=== PATIENT | male | born 1980 | race Caucasian/White ===

== ENCOUNTER 2025-01-09 17:51 | Inpatient (IN) | payer MEDICARE, OTHER ==
--- NOTE | 2025-01-09 19:05 | ED ---
Abdominal Pain HPI - General Chief Complaint: Abdominal Pain Stated Complaint: abd pain Time Seen by Provider: 01/09/25 19:04 Source: patient, RN notes reviewed Mode of arrival: ambulatory Limitations: no limitations - History of Present Illness Initial Comments: 44-year-old male with a past medical history significant of alcoholism and pancreatitis presenting to the ER for evaluation of abdominal pain. Patient states he relapsed on alcohol on his birthday [birth year] in celebration. He states today he started to experience a severe epigastric abdominal discomfort with radiation to his back. He states it feels similar. He has pancreatitis flares. He also admits to nausea but denies vomiting. Denies any constipation, diarrhea or urinary complaints. Patient states he typically drinks a pint of alcohol a day and is seeking help with rehab. He denies a history of seizures or DTs. He states he took " a shot 5 hours ago". He denies any fevers, chills, chest pain, shortness of breath or other complaints. Admits to marijuana use. Denies cholecystectomy. - Related Data Allergies Allergy/AdvReac Type Severity Reaction Status Date / Time No Known Allergies Allergy Verified 01/09/25 18:22 Review of Systems ROS Statement: Those systems with pertinent positive or pertinent negative responses have been documented in the HPI. ROS Other: All systems not noted in ROS Statement are negative. Past Medical History Additional Past Medical History / Comment(s): pancreatitis. Past Surgical History: No Surgical Hx Reported Smoking Status: Current every day smoker Past Alcohol Use History: Abuse Past Drug Use History: Marijuana General Exam Limitations: no limitations General appearance: alert, in no apparent distress, appears intoxicated Respiratory exam: Present: normal lung sounds bilaterally. Absent: respiratory distress, wheezes, rales, rhonchi, stridor Cardiovascular Exam: Present: regular rate, normal rhythm, normal heart sounds. Absent: systolic murmur, diastolic murmur, rubs, gallop, clicks GI/Abdominal exam: Present: soft, tenderness (Epigastric), normal bowel sounds Extremities exam: Present: normal inspection, full ROM, normal capillary refill. Absent: tenderness, pedal edema, joint swelling, calf tenderness Neurological exam: Present: alert, oriented X3, CN II-XII intact Skin exam: Present: warm, dry, intact, normal color. Absent: rash Course Vital Signs 01/09/25 18:19 Temperature 97.8 F Pulse Rate 74 Respiratory 17 Rate Blood Pressure 167/94 O2 Sat by Pulse 98 Oximetry - Reevaluation(s) Reevaluation #1: 01/09/25 22:20 case discussed with LUCIEN Edward, accepts admission. Medical Decision Making - Medical Decision Making Was pt. sent in by a medical professional or institution (, EVER, PAYROLL OFFICER, urgent care, hospital, or skilled nursing...) When possible be specific @ -No Did you speak to anyone other than the patient for history (EMS, parent, family, police, friend...)? What history was obtained from this source @ -No Did you review nursing and triage notes (agree or disagree)? Why? @ -I reviewed and agree with nursing and triage notes Were old charts reviewed (outside hosp., previous admission, EMS record, old EKG, old radiological studies, urgent care reports/EKG's, skilled nursing records)? Report findings @ -No old charts were reviewed Differential Diagnosis (chest pain, altered mental status, abdominal pain women, abdominal pain men, vaginal bleeding, weakness, fever, dyspnea, syncope, headache, dizziness, GI bleed, back pain, seizure, CVA, palpatations, mental health, musculoskeletal)? @ -Differential Abdominal Pain Men:Appendicitis, cholecystitis, diverticulosis, ischemic bowel, pancreatitis, hepatitis, UTI, gastroenteritis, AAA, incarcerated hernia, bowel obstruction, constipation, inflammatory bowel, hepatitis, peptic ulcer disease, splenic infarction, perforated viscus, testicular torsion, this is not meant to be an all-inclusive list EKG interpreted by me (3pts min.). @ -As above X-rays interpreted by me (1pt min.). @ -None done CT interpreted by me (1pt min.). @ -None done U/S interpreted by me (1pt. min.). @ -Gallbladder ultrasound interpreted by me no gallbladder wall thickening gallbladder wall 0.11 cm and no CBD dilation measuring 0.31 cm. Official radiology report pending. What testing was considered but not performed or refused? (CT, X-rays, U/S, labs)? Why? @ -None What meds were considered but not given or refused? Why? @ -None Did you discuss the management of the patient with other professionals (professionals i.e. , PA, PAYROLL OFFICER, lab, RT, psych nurse, case management social worker, sweatband shaper, teacher, highway patrol officer, foster care case manager)? Give summary @ -Yes, case discussed with Cheyanne MCGRAW accepts admission. Was smoking cessation discussed for >3mins.? @ -No Was critical care preformed (if so, how long)? @ -No Were there social determinants of health that impacted care today? How? ( Homelessness, low income, unemployed, alcoholism, drug addiction, transportation, low edu. Level, literacy, decrease access to med. care, alf, rehab)? @ -ETOH abuse Was there de-escalation of care discussed even if they declined (Discuss DNR or withdrawal of care, Hospice)? DNR status @ -No What co-morbidities impacted this encounter? (DM, HTN, Smoking, COPD, CAD, Cancer, CVA, ARF, Chemo, Hep., AIDS, mental health diagnosis, sleep apnea, morbid obesity)? @ -EtOH abuse, history of pancreatitis Was patient admitted / discharged? Hospital course, mention meds given and route, prescriptions, significant lab abnormalities, going to OR and other pertinent info. @ -Admitted. 44-year-old male presented the ER for evaluation of abdominal pain. Upon arrival vitals within acceptable limits. Patient appears intoxicated and in pain but no signs of acute respiratory distress. Abdominal exam remarkable for focal epigastric abdominal discomfort with normal bowel sounds. No rebound or guarding. Laboratory studies show an elevated lipase at 1314, amylase 178. Hepatobiliary laboratory studies within normal limits. Serum alcohol 18. Patient started on CIWA protocol and Ativan protocol. Seizure precautions in place. CIWA 3. Gallbladder ultrasound official radiology report pending at time of admission. Interpreted by me shows no gallbladder wall thickening or common bile duct dilation. Patient received IV fluid bolus, Zofran, Reglan, Toradol and Dilaudid for pain control in the ER. Upon reevaluation, patient requesting more pain and antiemetic medications, orders placed. Admission considered for further evaluation and treatment of pancreatitis. Admission accepted by Cheyanne MCGRAW. Patient agreeable for admission and admitted in stable condition for further evaluation and treatment. Case discussed with ED attending, Dr. Escobedo. Undiagnosed new problem with uncertain prognosis? @ -No Drug Therapy requiring intensive monitoring for toxicity (Heparin, Nitro, Insulin, Cardizem)? @ -No Were any procedures done? @ -No Diagnosis/symptom? @ -Pancreatitis Acute, or Chronic, or Acute on Chronic? @ -Acute Uncomplicated (without systemic symptoms) or Complicated (systemic symptoms)? @ -Complicated Side effects of treatment? @ -No Exacerbation, Progression, or Severe Exacerbation? @ -No Poses a threat to life or bodily function? How? (Chest pain, [place], [place], pneumonia, PE, COPD, DKA, ARF, appy, cholecystitis, CVA, Diverticulitis, Homicidal, Pagan icidal, threat to staff... and all critical care pts) @ -Possibly - Lab Data Result diagrams: 01/09/25 19:40 01/09/25 19:40 Lab Results 01/09/25 01/09/25 01/09/25 Range/Units 19:40 19:40 19:40 WBC 7.29 (4.50-10.00) 10*3/uL RBC 4.50 (4.40-5.60) 10*6/uL Hgb 14.8 (13.0-17.0) g/dL Hct 41.2 (39.6-50.0) % MCV 91.6 (80.0-97.0) fL MCH 32.9 H (27.0-32.0) pg MCHC 35.9 (32.0-37.0) g/dL Plt Count 195 (140-440) 10*3/uL MPV 9.6 (9.5-12.2) fL Immature Gran % (Auto) 0.4 % Neutrophils % 77.8 % Lymphocytes % 15.6 % Monocytes % 5.3 % Eosinophils % 0.4 % Basophils % 0.5 % Immature Gran # 0.03 (0.00-0.04) 10*3/uL Neutrophils # 5.66 (1.80-7.70) 10*3/uL Lymphocytes # 1.14 (0.90-5.00) 10*3/uL Monocytes # 0.39 (0.20-1.00) 10*3/uL Eosinophils # 0.03 L (0.04-0.35) 10*3/uL Basophils # 0.04 (0.00-0.10) 10*3/uL Sodium 138 (137-145) mmol/L Potassium 3.8 (3.5-5.1) mmol/L Chloride 103 (98-107) mmol/L Carbon Dioxide 24 (22-30) mmol/L Anion Gap 11 mmol/L BUN 9 (9-20) mg/dL Creatinine 0.61 L (0.66-1.25) mg/dL Est GFR (CKD-EPI)AfAm >90 (>60 ml/min/1.73 sqM) Est GFR (CKD-EPI)NonAf >90 (>60 ml/min/1.73 sqM) Glucose 112 H (74-99) mg/dL Plasma Lactic Acid Valdemar 1.8 (0.7-2.0) mmol/L Calcium 9.1 (8.4-10.2) mg/dL Total Bilirubin 0.7 (0.2-1.3) mg/dL AST 33 (17-59) U/L ALT 34 (4-49) U/L Alkaline Phosphatase 112 (38-126) U/L Total Protein 6.9 (6.3-8.2) g/dL Albumin 4.3 (3.5-5.0) g/dL Amylase 174 H (30-110) U/L Lipase 1314 H (23-300) U/L Serum Alcohol 18 mg/dL - EKG Data -: EKG Interpreted by Me EKG Comments: EKG taken at 19: 42 showing a sinus rhythm. T wave inversions lead III. Vent ricular rate 61, NH interval 181, QRS duration 105, QT/QTc 407/409. - Radiology Data Radiology results: image reviewed Disposition Clinical Impression: Pancreatitis, Alcohol use Disposition: ADMITTED IP TO THIS [facility] Condition: Stable Referrals: Daron Leblanc MD [Primary Care Provider] - 1-2 days Time of Disposition: 22:13
[2025-01-09] MEDS: SODIUM CHLORIDE 0.9% 1,000 ML IV ONE (19:45)
[2025-01-09] MEDS: ONDANSETRON 4 MG/2 ML VIAL IVP STA (19:46)
[2025-01-09] MEDS: ACETAMINOPHEN TAB 325 MG TAB PO STA (19:47)
[2025-01-09] MEDS: KETOROLAC 15 MG/ML 1 ML VIAL IVP STA (19:47)
[2025-01-09] MEDS: THIAMINE 100 MG TAB PO STA (19:47)
[2025-01-09 20:03] LABS: ALT 34 U/L (4-49); AST 33 U/L (17-59); African American GFR (CKD) >90 (>60 ml/min/1.73 sqM); Albumin 4.3 g/dL (3.5-5.0); Alcohol 18 mg/dL; Alkaline Phosphatase 112 U/L (38-126); Amylase 174 U/L (30-110); Anion Gap 11 mmol/L; Blood Urea Nitrogen 9 mg/dL (9-20); Calcium 9.1 mg/dL (8.4-10.2); Carbon Dioxide 24 mmol/L (22-30); Chloride 103 mmol/L (98-107); Glucose 112 mg/dL (74-99); Lipase 1314 U/L (23-300); Non-African American GFR(CKD) >90 (>60 ml/min/1.73 sqM); Potassium 3.8 mmol/L (3.5-5.1); Sodium 138 mmol/L (137-145); Total Bilirubin 0.7 mg/dL (0.2-1.3); Total Protein 6.9 g/dL (6.3-8.2)
[2025-01-09 20:04] LABS: Basophils # (A) 0.04 10*3/uL (0.00-0.10); Basophils % (A) 0.5 %; Eosinophils # (A) 0.03 10*3/uL (0.04-0.35); Eosinophils % (A) 0.4 %; HCT 41.2 % (39.6-50.0); HGB 14.8 g/dL (13.0-17.0); Lymphocytes # (A) 1.14 10*3/uL (0.90-5.00); Lymphocytes % (A) 15.6 %; MCH 32.9 pg (27.0-32.0); MCHC 35.9 g/dL (32.0-37.0); MCV 91.6 fL (80.0-97.0); Mean Platelet Volume 9.6 fL (9.5-12.2); Monocytes # (A) 0.39 10*3/uL (0.20-1.00); Monocytes % (A) 5.3 %; Neutrophils # (A) 5.66 10*3/uL (1.80-7.70); Neutrophils % (A) 77.8 %; Platelet Count 195 10*3/uL (140-440); RDW 12.4 % (11.5-14.5); WBC 7.29 10*3/uL (4.50-10.00)
[2025-01-09] MEDS: SODIUM CHLORIDE 0.9% 500 ML 500 ML IV ONE (22:12)
[2025-01-09] MEDS ORDERED: LORazepam 2 MG/ML INJ IV PRN ×3 (22:12)
[2025-01-09] MEDS: diphenhydrAMINE 50 MG/ML 1 ML VIAL IVP STA (22:14)
[2025-01-09] MEDS: METOCLOPRAMIDE 5 MG/ML 2 ML VIAL IVP STA (22:15)
[2025-01-09] MEDS: HYDROmorphone 0.5 MG/0.5 ML SYRINGE IVP STA (22:18)
[2025-01-09] MEDS ORDERED: NALOXONE 0.4 MG/ML 1 ML VIAL IV PRN (22:19)
[2025-01-09] MEDS ORDERED: ACETAMINOPHEN TAB 325 MG TAB PO PRN (22:19)
--- NOTE | 2025-01-09 22:26 | US ---
EXAMINATION TYPE: US gallbladder DATE OF EXAM: 01/09/2025 COMPARISON: NONE CLINICAL INDICATION: Male, 44 years old with history of RUQ abd pain elevated lipase; epigastric pain and RUQ pain. Hx of pancreatitis multiple times per pt. Elevated lipase and amylase TECHNIQUE: Grayscale and color Doppler imaging of the right upper quadrant was performed. FINDINGS: EXAM MEASUREMENTS: Liver Length: 16.7 cm. Normal less than 15.5 cm . Gallbladder Wall: 0.11 cm CBD: 0.31 cm Right Kidney: 9.8 x 8.3 x 4.3 cm HAND STAPLER NOTES: Pancreas: heterogeneous appearance. Slightly limited due to overlying bowel gas Liver: heterogeneous and slightly enlarged Gallbladder: wnl Evidence for sonographic Alvarez's sign: No CBD: wnl Right Kidney: wnl IMPRESSION: 1. Mild fatty infiltration of liver with minimal hepatomegaly [facility] Wagner Spaulding, Workstation: [facility], 01/09/2025 10:24 PM
[2025-01-09] MEDS: SODIUM CHLORIDE 0.9% 1,000 ML IV SCH (23:13)
[2025-01-10] MEDS: HYDROmorphone 0.5 MG/0.5 ML SYRINGE IVP PRN (01:19)
[2025-01-10] MEDS: ONDANSETRON 4 MG/2 ML VIAL IVP PRN (04:18)
[2025-01-10] MEDS: KETOROLAC 15 MG/ML 1 ML VIAL IVP PRN (07:00)
[2025-01-10] MEDS ORDERED: LORazepam 1 MG/0.5 ML VIAL IV PRN ×3 (09:05→09:06)
[2025-01-10 11:09] VITALS: BMI 22.0
[2025-01-10] MEDS: PANTOPRAZOLE 40 MG/10 ML VIAL IVP SCH (13:53)
--- NOTE | 2025-01-10 13:56 | P.HPIM ---
History of Present Illness 44-year-old male came in status epigastric abdominal pain severe sharp radiating to the back. Patient had multiple episodes of pancreatitis in the past continues to drink alcohol on regular basis. Patient drinks about a pint of alcohol every day had history of withdrawals in the past. Patient had withdrawal seizures in the past as well. Patient is presently not tolerating clear liquid diet patient's amylase is 174 lipase is 1314. Admits to marijuana use. Patient had an ultrasound which did not show any cholelithiasis. REVIEW OF SYSTEMS: All other systems are negative except those mentioned in the HPI PHYSICAL EXAMINATION: GENERAL: The patient is alert and oriented x3, not in any acute distress. Well developed, well nourished. HEENT: Pupils are round and equally reacting to light. EOMI. No scleral icterus. No conjunctival pallor. Normocephalic, atraumatic. No pharyngeal erythema. No thyromegaly. CARDIOVASCULAR: S1 and S2 present. No murmurs, rubs, or gallops. PULMONARY: Chest is clear to auscultation, no wheezing or crackles. ABDOMEN: Soft, mild tenderness in the epigastric area nondistended, normoactive bowel sounds. No palpable organomegaly. MUSCULOSKELETAL: No joint swelling or deformity. EXTREMITIES: No cyanosis, clubbing, or pedal edema. NEUROLOGICAL: Gross neurological examination did not reveal any focal deficits. SKIN: No rashes. Assessment and plan -Alcoholic pancreatitis patient will be made n.p.o. continue with IV fluids will increase IV fluids to 100 cc/h. Continue with Toradol, Protonix and Dilaudid as needed. - Alcohol abuse: Counseling was provided, thiamine will be added. - Alcohol withdrawal patient is on Ativan CIWA protocol presently not having any withdrawals. His last drink was last yesterday. - Marijuana and nicotine use: Counseling was provided DVT prophylaxis: Lovenox Past Medical History Additional Past Medical History / Comment(s): pancreatitis History of Any Multi-Drug Resistant Organisms: None Reported Past Surgical History: Hernia Repair Smoking Status: Current every day smoker Past Alcohol Use History: Abuse Past Drug Use History: Marijuana - Past Family History Mother History Unknown: Yes Father History Unknown: Yes Medications and Allergies Home Medications Medication Instructions Recorded Confirmed Type FLUoxetine HCL 20 mg PO DAILY PRN 01/10/25 01/10/25 History Allergies Allergy/AdvReac Type Severity Reaction Status Date / Time No Known Allergies Allergy Verified 01/10/25 09:46 Physical Exam Vitals: Vital Signs Temp Pulse Pulse Pulse Resp BP BP 01/10/25 07:00 98.2 F 63 16 150/82 01/10/25 02:00 98.1 F 62 17 01/09/25 23:13 98.3 F 59 L 17 157/95 01/09/25 18:19 97.8 F 74 17 167/94 BP Pulse Ox 01/10/25 07:00 98 01/10/25 02:00 145/82 96 01/09/25 23:13 97 01/09/25 18:19 98 Intake and Output 01/09/25 01/10/25 01/10/25 22:59 06:59 14:59 Other: Voiding Method Toilet Urinal # Voids 0 Weight 65.771 kg 65.771 kg 65.771 kg Results CBC & Chem 7: 01/09/25 19:40 01/09/25 19:40 Labs: Abnormal Lab Results - Last 24 Hours (Table) 01/09/25 01/09/25 Range/Units 19:40 19:40 MCH 32.9 H (27.0-32.0) pg Eosinophils # 0.03 L (0.04-0.35) 10*3/uL Creatinine 0.61 L (0.66-1.25) mg/dL Glucose 112 H (74-99) mg/dL Amylase 174 H (30-110) U/L Lipase 1314 H (23-300) U/L Thrombosis Risk Factor Assmnt - Choose All That Apply Each Factor Represents 1 point: Age 41-60 years Thrombosis Risk Factor Assessment Total Risk Factor Score: 1 Thrombosis Risk Factor Assessment Level: Low Risk
[2025-01-11 05:54] LABS: African American GFR (CKD) >90 (>60 ml/min/1.73 sqM); Anion Gap 12 mmol/L; Blood Urea Nitrogen 7 mg/dL (9-20); Calcium 8.8 mg/dL (8.4-10.2); Carbon Dioxide 20 mmol/L (22-30); Chloride 103 mmol/L (98-107); Glucose 70 mg/dL (74-99); Lipase 329 U/L (23-300); Magnesium 1.8 mg/dL (1.6-2.3); Non-African American GFR(CKD) >90 (>60 ml/min/1.73 sqM); Potassium 3.4 mmol/L (3.5-5.1); Sodium 135 mmol/L (137-145)
[2025-01-11] MEDS: ENOXAPARIN 40 MG/0.4 ML SYRINGE SQ SCH (08:13)
[2025-01-12 12:12] LABS: Basophils # (A) 0.03 10*3/uL (0.00-0.10); Basophils % (A) 0.7 %; Eosinophils # (A) 0.12 10*3/uL (0.04-0.35); Eosinophils % (A) 2.8 %; HCT 40.9 % (39.6-50.0); HGB 14.1 g/dL (13.0-17.0); Lymphocytes # (A) 1.04 10*3/uL (0.90-5.00); Lymphocytes % (A) 23.9 %; MCH 32.9 pg (27.0-32.0); MCHC 34.5 g/dL (32.0-37.0); MCV 95.3 fL (80.0-97.0); Mean Platelet Volume 9.5 fL (9.5-12.2); Monocytes # (A) 0.41 10*3/uL (0.20-1.00); Monocytes % (A) 9.4 %; Neutrophils # (A) 2.74 10*3/uL (1.80-7.70); Platelet Count 155 10*3/uL (140-440); RBC 4.29 10*6/uL (4.40-5.60); RDW 12.6 % (11.5-14.5); WBC 4.35 10*3/uL (4.50-10.00)
[2025-01-12 12:25] LABS: ALT 24 U/L (4-49); AST 33 U/L (17-59); African American GFR (CKD) >90 (>60 ml/min/1.73 sqM); Albumin 4.1 g/dL (3.5-5.0); Albumin/Globulin Ratio 1.6; Alkaline Phosphatase 92 U/L (38-126); Amylase 103 U/L (30-110); Anion Gap 19 mmol/L; Blood Urea Nitrogen 8 mg/dL (9-20); Calcium 9.2 mg/dL (8.4-10.2); Carbon Dioxide 11 mmol/L (22-30); Chloride 106 mmol/L (98-107); Globulin 2.5 g/dL; Glucose 71 mg/dL (74-99); Non-African American GFR(CKD) >90 (>60 ml/min/1.73 sqM); Sodium 136 mmol/L (137-145); Total Bilirubin 0.7 mg/dL (0.2-1.3); Total Protein 6.6 g/dL (6.3-8.2)
[2025-01-12] MEDS: FLUoxetine HCL 20 MG CAP PO PRN (23:03)
--- NOTE | 2025-01-13 06:48 | PN ---
PROGRESS NOTE CHIEF COMPLAINT: Acute alcohol intoxication, alcoholism and pancreatitis. HISTORY OF PRESENT ILLNESS: This gentleman is doing a little bit better. He is complaining of some pain in the back. PHYSICAL EXAMINATION: VITAL SIGNS: His blood pressure is high 167/94. CHEST: Clear. CARDIAC: Normal. ABDOMEN: Slightly tender over the epigastrium. IMPRESSION: 1. Alcoholic pancreatitis. 2. Back pain. 3. Hypertension. 4. Chronic alcoholism. PLAN: Continue with IV fluids and analgesics and continue to follow labs. MMODL / IJN: [id number] /
--- NOTE | 2025-01-13 07:24 | PN ---
PROGRESS NOTE CHIEF COMPLAINT: Acute alcoholic pancreatitis and alcoholism. HISTORY OF PRESENT ILLNESS: This gentleman doing a little bit better. Pain is improving. He still has the back pain. PHYSICAL EXAMINATION: CHEST: Clear. CARDIAC: Normal. ABDOMEN: He is pulp press tender in the upper abdomen. There are no masses. IMPRESSION: 1. Acute alcoholic pancreatitis. 2. Acute alcohol intoxication. 3. Chronic alcoholism. PLAN: 1. Advance diet. 2. Repeat labs. MMODL / IJN: [id number] /
[2025-01-13 07:48] VITALS: BP 119/79; PULSE 63; RESP 16; TEMP 98
--- NOTE | 2025-01-13 13:03 | DS ---
DISCHARGE SUMMARY CHIEF COMPLAINT: Acute abdominal pain and alcohol intoxication. HISTORY OF PRESENT ILLNESS AND PHYSICAL EXAMINATION: Details of this man's history and physical can be found in the initial workup. LABORATORY STUDIES: While he was in a hospital, he had laboratory studies, details of which can be found in the laboratory section of his chart. COURSE IN THE HOSPITAL: After admission, he was placed on bedrest, started intravenous fluids, and analgesics for his pancreatitis. Pain slowly subsided and lipase was coming down. His diet was advanced. He was doing well and it was felt that he could be discharged on the . He will follow up in the office in several days. FINAL DIAGNOSES: 1. Acute alcoholic pancreatitis. 2. Chronic alcoholism. OPERATIONS: None. CONSULTATION: None. He is improved. MMODL / RONNAN: [id number] /
== END 2025-01-13 12:30 | disposition home or self-care (01) | DRG 282 ==
LOC: EC 17:51 → 6NMEDSUR 22:20 → OBSVTOIN 01-11 22:20
PROVIDERS: ADMIT Family Medicine; ATTEND Family Medicine
DX: K85.20 Alcohol induced acute pancreatitis without necrosis or infection (principal); F10.239 Alcohol dependence with withdrawal, unspecified; Y90.0 Blood alcohol level of less than 20 mg/100 ml; F17.200 Nicotine dependence, unspecified, uncomplicated; I10 Essential (primary) hypertension; Z79.899 Other long term (current) drug therapy
CPT/HCPCS: 36415; 76705; 80048; 80053; 80320; 82150; 83605; 83690; 83735; 85025; 93005; 96361; 96374; 96375; 99285

== ENCOUNTER 2025-03-16 01:09 | Emergency (ER) | payer MEDICARE ==
[2025-03-16] MEDS: SULFAMETHOX-TMP 800-160MG 1 EACH TAB PO STA (01:37)
[2025-03-16] MEDS: LIDOCAINE 1% INJ 10MG/ML (20 ML MDV) SQ ONE (01:37)
[2025-03-16] MEDS: CEPHALEXIN 500 MG CAP PO STA (01:37)
[2025-03-16] MEDS: KETOROLAC 15 MG/ML 1 ML VIAL IM STA (01:38)
--- NOTE | 2025-03-16 02:39 | ED ---
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 States it initially blistered and he did not deroof the blister, however the blistered area began filling with fluid and having worsening surrounding redness and pain over the last few days. Pt denies systemic symptoms, such as fever, nausea or vomiting. Redness is localised to top of affected digit. Denies numbness. UTD on vaccines including Tdap. No hx MRSA or DM. - Related Data Home Medications Medication Instructions Recorded Confirmed FLUoxetine HCL 20 mg PO DAILY PRN 01/10/25 01/10/25 Previous Rx's Medication Instructions Recorded Cephalexin [Keflex] 500 mg PO Q6HR 7 Days #28 cap 03/16/25 Sulfamethox-Tmp 800-160Mg [Bactrim 1 each PO Q12HR 7 Days #14 tab 03/16/25 DS 800-160 mg] Allergies Allergy/AdvReac Type Severity Reaction Status Date / Time No Known Allergies Allergy Verified 03/16/25 01:15 Review of Systems ROS Statement: Those systems with pertinent positive or pertinent negative responses have been documented in the HPI. ROS Other: All systems not noted in ROS Statement are negative. Past Medical History Additional Past Medical History / Comment(s): pancreatitis History of Any Multi-Drug Resistant Organisms: None Reported Past Surgical History: Hernia Repair Past Psychological History: No Psychological Hx Reported Smoking Status: Current every day smoker Past Alcohol Use History: Abuse Past Drug Use History: Marijuana - Past Family History Mother History Unknown: Yes Father History Unknown: Yes General Exam - General Exam Comments Initial Comments: Vital signs reviewed General: Well-appearing, nontoxic, no acute distress. Head: Normocephalic, atraumatic Eyes: PERRLA, EOMI ENT: Airway patent Chest: Nonlabored breathing Skin: No visual rash, ~ 1 cm blister overlying the proximal left 3rd digit with mild surrounding erythema localized to area surrounding the blister, does not extend up the hand. No erythema to the palmar aspect of the affected finger. Pt does have some pain with completely flexing the affected digit however the finger is not held in flexion, no fusiform swelling of the digit, no TTP along flexor tendon, no pain with passive extension. No deformity, <2s cap refill, sensation intact throughout Neuro: Alert and oriented 3 Musculoskeletal: No gross abnormalities, except pain as noted above Limitations: no limitations Course Vital Signs 03/16/25 03/16/25 01:12 02:57 Temperature 97.5 F L 97.8 F Pulse Rate 65 89 Respiratory 16 19 Rate Blood Pressure 134/68 132/89 O2 Sat by Pulse 100 96 Oximetry Procedures - Incision & Drainage Consent Obtained: verbal consent Site: hand Anesthetic Used: lidocaine 1% Amount (mLs): 6 Scalpel Used: #11 Ultrasound used: No Needle Aspiration Performed?: No Irrigation Performed?: Yes I&D Drainage Obtained: Pus, Blood Loculation Noted: probing needed to break Insertion of drain: No Patient Tolerated Procedure: well - Nerve Block Consent Obtained: verbal consent Local Anesthetic Used: Lidocaine 1% Amount of anesthesia used: 6 Side: left Nerve Blocks: digital Procedure Successful: Yes Complications: none Patient Tolerated Procedure: well Medical Decision Making - Medical Decision Making Was pt. sent in by a medical professional or institution (Dr. PA, EDUCATIONAL PARAPROFESSIONAL, urgent care, hospital, or penitentiary...) When possible be specific @ -No Did you speak to anyone other than the patient for history (EMS, parent, family, police, friend...)? What history was obtained from this source @ -No Did you review nursing and triage notes (agree or disagree)? Why? @ -I reviewed nursing and triage notes Were old charts reviewed (outside hosp., previous admission, EMS record, old EKG, old radiological studies, urgent care reports/EKG's, penitentiary records)? Report findings @ -Medical records reviewed-Reviewed ED note from 01/09/2025 when patient had presented for abdominal pain, patient was admitted after being found to have an elevated lipase. Differential Diagnosis (chest pain, altered mental status, abdominal pain women, abdominal pain men, vaginal bleeding, weakness, fever, dyspnea, syncope, headache, dizziness, GI bleed, back pain, seizure, CVA, palpatations, mental health, musculoskeletal)? @Differential diagnosis remains broad however top considerations include cellulitis, abscess, second-degree partial-thickness burn, flexor tenosynovitis, arthropod bite, this is not all-inclusive list EKG interpreted by me (3pts min.). @ -As above X-rays interpreted by me (1pt min.). @ -None done CT interpreted by me (1pt min.). @ -None done U/S interpreted by me (1pt. min.). @ -None done What testing was considered but not performed or refused? (CT, X-rays, U/S, labs)? Why? @ -None What meds were considered but not given or refused? Why? @ -None Did you discuss the management of the patient with other professionals (professionals i.e. , PA, EDUCATIONAL PARAPROFESSIONAL, lab, RT, psych nurse, director social service, accounts receivable coordinator, teacher, fire prevention officer, immigration case manager)? Give summary @ -No Was smoking cessation discussed for >3mins.? @ -No Was critical care preformed (if so, how long)? @ -No Were there social determinants of health that impacted care today? How? (Homelessness, low income, unemployed, alcoholism, drug addiction, transportation, low edu. Level, literacy, decrease access to med. care, half-way, rehab)? @ -No Was there de-escalation of care discussed even if they declined (Discuss DNR or withdrawal of care, Hospice)? @ -No What co-morbidities impacted this encounter? (DM, HTN, Smoking, COPD, CAD, Cancer, CVA, ARF, Chemo, Hep., AIDS, mental health diagnosis, sleep apnea, morbid obesity)? @ -None Was patient admitted / discharged? Hospital course, mention meds given and route, prescriptions, significant lab abnormalities, going to OR and other pertinent info. @ -Discharged-this is a pleasant 44-year-old gentleman presenting today for erythema and pain of the left third digit after burning his hand 1 week ago. Signs are stable on arrival. Patient has no history of diabetes or MRSA. Exam revealed rounded area of fluctuance over the proximal left third digit with mild surrounding erythema. Negative [place] signs. It does appear that patient's blister has evolved into an abscess. Discussed with pt plan for I&D. Offered option of stab incision with or without digital block. Pt requested digital block. Pain control, cephalexin and bactrim ordered due to surrounding area of erythema around abscess concerning for co-occurent cellulitis. I&D performed without complication, drained purulent fluid. Pain improved. Pt directed to keep the area clean and dry and to wear protective gloves while working with his hands /cooking. We discussed signs and symptoms warranting return to the ED such as failure of symptoms to continue to improve, worsening redness/swelling, uncontrolled pain or fever. Pt will be discharged home with cephalexin and bactrim. Pt agreeable with POC, all questions answered, pt discharged in improved condition. \ In my medical judgment there is currently no evidence of an immediate life- threatening or surgical condition. Discharge is therefore indicated at this time. Discharge treatment instructions, follow up instructions, and appropriate emergency department return precautions were discussed with the patient and/or medical decision maker. Patient and/or medical decision maker expressed understanding of and agreed with the treatment plan, follow up instructions, and emergency department return precaution. All patient's and/or medical decision maker's questions were answered. The patient was advised that a small risk still exists that a serious condition could develop and was therefore instructed to return to the ED for any changes in symptoms, persistent symptoms, inability to obtain proper follow-up or for any further concerns. Patient received verbal and written instructions for this condition. Undiagnosed new problem with uncertain prognosis? @ -No Drug Therapy requiring intensive monitoring for toxicity (Heparin, Nitro, Insulin, Cardizem)? @ -No Were any procedures done? @Yes, digital block, incision and drainage Diagnosis/symptom? @Abscess, cellulitis Acute, or Chronic, or Acute on Chronic? @Acute Uncomplicated (without systemic symptoms) or Complicated (systemic symptoms)? @Uncomplicated Side effects of treatment? @ -No Exacerbation, Progression, or Severe Exacerbation? @ -No Poses a threat to life or bodily function? How? (Chest pain, [place], [place], pneumonia, PE, COPD, DKA, ARF, appy, cholecystitis, CVA, Diverticulitis, Homicidal, Suicidal, threat to staff... and all critical care pts) @ -No not at time of discharge Disposition Clinical Impression: Abscess, Cellulitis Disposition: HOME SELF-CARE Condition: Good Instructions (If sedation given, give patient instructions): Cellulitis (ED), Abscess Incision and Drainage (ED) Additional Instructions: Every disease is a spectrum and a small chance still exists that a serious condition could develop, for this reason, please monitor yourself closely for new, changing or worsening symptoms, symptoms that persist beyond 48 hours, spreading redness despite use of antibiotics, redness surrounding your entire finger, especially underneath of your finger, difficulty bending or move your finger due to this, pain you cannot control without medications, fever, inability to tolerate/keep down fluids or your medications, inability to follow up with outpatient providers as instructed and should you experience these symptoms or should you have any further concerns for your wellbeing please return to the ED or call 911 immediately. Your pain can be treated with ibuprofen and acetaminophen. You can take up to 400-600 mg of ibuprofen (Advil, Motrin) 3 times daily (every 8 hours) but can also use lower doses if this relieves your pain. Some people prefer naproxen (Aleve, Naprosyn) which can be taken in doses of 500 mg up to twice a day. Do not take both of these medicines together, and do not combine either with ketorolac (Toradol), meloxicam (Mobic), or indomethacin (Tivorbex). Some people can develop stomach discomfort with higher doses of either ibuprofen or naproxen, if this develops decrease your dose or stop taking it. If you need to take this dose daily for more than a week, please schedule an appointment for re-evaluation with your PCP. Please take these medications with food. You can take up to 1000 mg of acetaminophen (Tylenol) every 6 hours. Be careful as this is included in some medicines like Nyquil, Head Waters, Percocet, Vicodin, STANBACK, Goody's Powders, and Excedrin. You can also use lidocaine patches for topical pain. You can purchase 4% patches over the counter at most drug stores. These can be helpful for pain from your muscles or bones. It is very important to keep the area of infection clean and dry, especially working with food or working with your hands, please keep a bandage on the area of infection and a glove covering your hand. You may perform warm soapy water soaks 3-4 times a day until swelling and redness has gone away. Please take antibiotics as prescribed. PLEASE call your primary care physician as soon as possible to arrange / discuss plan for followup appointment. Appointment in the next 1-3 days is strongly encouraged if possible. PLEASE let us know here before you leave if there is anything further we can do to be of any assistance. Take care and feel Better! Prescriptions: Sulfamethox-Tmp 800-160Mg [Bactrim DS 800-160 mg] 1 each PO Q12HR 7 Days #14 tab Cephalexin [Keflex] 500 mg PO Q6HR 7 Days #28 cap Is patient prescribed a controlled substance at d/c from ED?: Yes When asked, does pt state using other controlled substances?: No Referrals: Daron Leblanc MD [Primary Care Provider] - 1-2 days
[2025-03-16] MEDS: SULFAMETH-TMP DS STARTER PACK 2 TAB BTL PO STA (02:51)
[2025-03-16] MEDS: ACET/COD 300 MG/30 MG STARTER PACK 6 TAB BTL PO STA (02:51)
[2025-03-16] MEDS: MORPHINE SULFATE 4 MG/ML SYRINGE IM STA (02:52)
[2025-03-16] MEDS: CEPHALEXIN 500MG STARTER PACK 4 CAP BTL PO STA (02:52)
[2025-03-16] MEDS: ONDANSETRON 4 MG/2 ML VIAL IM STA (02:55)
[2025-03-16 02:58] VITALS: BP 132/89; PULSE 89; RESP 19; TEMP 97.8
== END 2025-03-16 02:58 | disposition home or self-care (01) ==
LOC: EC 01:09
DX: L03.012 Cellulitis of left finger (principal); L02.512 Cutaneous abscess of left hand; F17.200 Nicotine dependence, unspecified, uncomplicated
CPT/HCPCS: 99283; 96372; 10060; J2270; J2003; J1885